=== PATIENT | female | born 1995 | race Caucasian/White ===

== ENCOUNTER 2019-02-26 06:37 | Outpatient (CLI) | payer BC ==
--- NOTE | 2019-02-26 14:28 | NM ---
GASTRIC EMPTYING STUDY: Date: 02/26/19 INDICATION: Nausea with vomiting. TECHNIQUE: Patient was given 2.2 mCi technetium labeled sulfur colloid mixed with eggs for solid phase emptying study. FINDINGS/IMPRESSION: 30 minutes: 21% emptying 1 hour: 37% emptying 2 hours: 65% emptying 3 hours: 79% emptying 4 hours: 88% emptying T-1/2: 88 minutes POS: [facility]
== END 2019-02-26 06:38 | disposition home or self-care (01) ==
LOC: NM 06:37
PROVIDERS: ATTEND Internal Medicine
DX: R11.2 Nausea with vomiting, unspecified (principal); R10.33 Periumbilical pain
CPT/HCPCS: 78264; A9541